=== PATIENT | male | born 1970 | race Two or more races ===

== ENCOUNTER 2021-11-24 10:22 | Day surgery (SDC) | payer BC ==
[2021-11-20 16:08] VITALS: BMI 28.7
[2021-11-24 12:32] VITALS: PULSE 70
[2021-11-24 12:34] VITALS: BP 119/79; TEMP 98
== END 2021-11-24 12:40 | disposition home or self-care (01) ==
LOC: FASU-ENDO 10:22
PROVIDERS: ATTEND Internal Medicine Gastroenterology
PROC: 0DJD8ZZ Inspection of Lower Intestinal Tract, Via Natural or Artificial Opening Endoscopic (ICD-10-PCS; principal; 2021-11-24 11:50)
DX: Z12.11 Encounter for screening for malignant neoplasm of colon (principal)